=== PATIENT | male | born 1985 | race Caucasian/White ===

== ENCOUNTER 2017-10-22 15:19 | Emergency (ER) | payer MEDICAID ==
[2017-10-22 15:23] VITALS: BP 112/71; PULSE 61; RESP 16; TEMP 98.1; O2SAT 96
--- NOTE | 2017-10-22 15:44 | EDPHY ---
H & P Stated Complaint: lac to palmar aspect L hand Time Seen by Provider: 10/22/17 15:42 HPI/ROS: HPI: This is a 32-year-old male who presents with Chief Complaint: lac to palmar aspect L hand Location: Left hand Quality: Laceration Duration: Prior to arrival Signs and Symptoms: No bleeding, no radiation, no numbness, no weakness, no tingling, no incontinence, no decreased range of motion, no swelling, no pain, no fever Timing: Acute Severity: Mild Context: Patient is right-hand dominant, presents to the emergency room after accidentally cutting his left thumb at the base palmar aspect while using a drill. He reports that was a clean drill but he accidentally sliced it across his finger. He reports that it started to bleed and he applied direct pressure. She does not know how deep it is so he came to the emergency room for further evaluation. He denies any numbness/tingling/pain/decreased range of motion. Reports tetanus up-to-date. Modifying Factors: Direct pressure Comment: ROS: see HPI Constitutional: No fever, no chills, no weight loss Eyes: No blurred vision Respiratory: No shortness of breath, no cough Cardiovascular: No chest pain Gastrointestinal: No nausea, no vomiting no diarrhea Genitourinary: No dysuria Extremities: No myalgias Neurologic: No weakness, no numbness Skin: No rashes Hematologic: No bruising, no bleeding MEDICAL/SURGICAL/SOCIAL HISTORY: Medical history: Generally healthy. Does not take any regular medications. Surgical history: Denies Social history: Employed. CONSTITUTIONAL: Polite and cooperative adult male, awake and alert, no obvious distress HEENT: Atraumatic and normocephalic. NECK: supple, no midline tenderness, flexion 45 degrees, extension 45 degrees, right and left lateral flexion 45 degrees. No meningismus. Cardiovascular: Normal S1/S2, regular rate, regular rhythm, without murmur rub or gallop. PULMONARY/CHEST: Symmetrical and nontender. no crepitus. Clear to auscultation bilaterally. Good air movement. No accessory muscle usage. ABDOMEN: Soft, nondistended, nontender, no ecchymosis. PELVIC: no pain with rocking; bilateral hips flexion 125 degrees, extension 30 degrees, with no pain internal rotation and no pain external rotation. BACK: No midline tenderness, no paraspinous spasm, deep tendon reflexes 2/2, no pain with straight leg raise, No foot drop. Achilles reflexes are equal bilaterally. Able to walk on heels and toes without difficulty. EXTREMITIES: 2/2 radial pulses, strength 5/5, left thumb at MCP joint shows superficial 1 cm laceration; no active bleeding. DIP/PIP/MCP flexion/extension intact with good light touch sensation. no deformities, no clubbing, no cyanosis or edema. NEUROLOGICAL: no focal neuro deficits. GCS 15. Light touch sensation intact. SKIN: Warm and dry, no erythema. no rash. Good capillary refill. Source: Patient Exam Limitations: No limitations - Personal History Current Tetanus Diphtheria and Acellular Pertussis (TDAP): Yes - Medical/Surgical History Other PMH: healthy - Social History Smoking Status: Never smoked Constitutional: Initial Vital Signs Temperature (C) 36.7 C 10/22/17 15:21 Heart Rate 61 10/22/17 15:21 Respiratory Rate 16 10/22/17 15:21 Blood Pressure 112/71 10/22/17 15:21 O2 Sat (%) 96 10/22/17 15:21 O2 Delivery Mode Room Air Allergies/Adverse Reactions: No Known Allergies Allergy (Unverified 10/22/17 15:20) Home Medications: Medication Instructions Recorded NK [No Known Home Meds] 10/22/17 Medical Decision Making Procedures: Procedure: Laceration repair. Verbal consent was obtained from the patient. The left thumb at MCP joint shows superficial 1 cm laceration was anesthetized in the usual fashion using 4 mL of 1% lidocaine The wound was irrigated, draped and explored to its base with a gloved finger. There were no deep structures involved. No tendon injury was identified. The wound was repaired with DuoDerm. Clean sterile dressing applied. The procedure was performed by myself. ED Course/Re-evaluation: Digital block performed for patient's comfort using 4 mL of 1% lidocaine. Copiously irrigated and no indication for sutures. Wound care provided consisting of Xeroform and tube gauze. Antibiotics not indicated. Tetanus up-to-date No signs of neurovascular compromise/tenting of skin/compartment syndrome/ extremities and joints examined above and below area of concern and are neurovascularly intact. This patient was seen under the supervision of my secondary supervising physician. I evaluated care for this patient independently. Discussed this patient with Dr. Santiago who did not see the patient. Differential Diagnosis: Differential diagnosis includes but is not limited to foreign body, tendon laceration, nerve injury, contusion, laceration. Departure - Departure Disposition: Home, Routine, Self-Care Clinical Impression: Laceration of thumb without complication Qualifiers: Encounter type: initial encounter Laterality: left Qualified Code(s): S61.012A - Laceration without foreign body of left thumb without damage to nail, initial encounter Condition: Good Instructions: Skin Adhesive Care (ED) Additional Instructions: Keep the dressing dry and in place for 48 hours. After 48 hours, you may remove the dressing; wash the site daily with mild soap and water; then pat dry. Take Tylenol 650 mg every 4 hours and/or Ibuprofen 600 mg every 8 hours with food as needed for pain. Allow the skin glue to fall off on its own. Do not pick. Return to the ER immediately if you experience redness, red streaks, have fevers /chills, flu like symptoms, limited range of motion, or any other symptoms that concern you. Referrals: [facility],. [Clinic] - As per Instructions
[2017-10-22] MEDS ORDERED: SKIN ADHESIVE (DERMABOND) 1 EACH TP ONE (16:06)
== END 2017-10-22 16:55 | disposition home or self-care (01) ==
PROC: 0HQGXZZ Repair Left Hand Skin, External Approach (ICD-10-PCS; principal; 2017-10-22)
DX: S61.012A Laceration without foreign body of left thumb without damage to nail, initial encounter (principal); W31.1XXA Contact with metalworking machines, initial encounter

== ENCOUNTER 2018-04-27 20:04 | Emergency (ER) | payer MEDICAID ==
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
[2018-04-27] MEDS ORDERED: CEPHALEXIN 500MG PREPACK#4 BTL TAKEHOME ONE (20:26)
[2018-04-27] MEDS: CEPHALEXIN 500 MG CAP PO ONE ×2 (21:04→21:10)
[2018-05-11 16:12] VITALS: BP 112/57
== END 2018-04-27 21:12 | disposition home or self-care (01) ==
PROC: 0HQDXZZ Repair Right Lower Arm Skin, External Approach (ICD-10-PCS; principal; 2018-04-27)
DX: S51.811A Laceration without foreign body of right forearm, initial encounter (principal); V18.0XXA Pedal cycle driver injured in noncollision transport accident in nontraffic accident, initial encounter; Y93.55 Activity, bike riding; Y99.8 Other external cause status